=== PATIENT | male | born 1980 | race Caucasian/White ===

== ENCOUNTER 2017-01-22 17:56 | Emergency (ER) | payer OTHER ==
[2017-01-22] MEDS ORDERED: LIDOCAINE 1% 10 ML VIAL INJ ONE (18:02)
[2017-01-22] MEDS ORDERED: CHLORHEXIDINE GLUCONATE 4 % 15 ML UD TOP ONE (18:08)
[2017-01-22 18:10] VITALS: TEMP 98.5
[2017-01-22] MEDS ORDERED: HYDROcodone 10MG/APAP 325MG 1 EA TAB PO ONE (18:43)
--- NOTE | 2017-01-22 18:54 | ED.PDOC ---
History of Present Illness - General Chief Complaint: Bite: Animal/Insect/Human Stated Complaint: dog bite Time Seen by Provider: 01/22/17 18:51 Source: patient, RN notes reviewed, Vital Signs reviewed Exam Limitations: no limitations - History of Present Illness Initial Comments: Patient is a 36 y/o male who was trying to break up a dog fight and got bit on the right 3rd finger. He has a 3 cm longitudinal laceration on the dorsal side of his finger. The pain is moderate to severe. He is up to date on his tetanus shot. Timing/Duration: 1/2 hour Severity: moderate, severe Improving Factors: immobilization Worsening Factors: movement Associated Symptoms: denies symptoms Allergies/Adverse Reactions: Allergies NO KNOWN ALLERGY Allergy (Verified 01/22/17 18:08) Home Medications: Ambulatory Orders Acetaminophen W/ Codeine [Tylenol W/ CODEINE #3] 1 ea PO Q4H PRN #15 01/22/17 Ciprofloxacin [Cipro] 500 mg PO BID #14 tab 01/22/17 Clindamycin HCl 300 mg PO QID #28 cap 01/22/17 Review of Systems - Review of Systems Constitutional: States: no symptoms reported EENTM: States: no symptoms reported Respiratory: States: no symptoms reported Cardiology: States: no symptoms reported Gastrointestinal/Abdominal: States: no symptoms reported Genitourinary: States: no symptoms reported Musculoskeletal: States: joint pain, joint swelling Skin: States: lesions Endocrine: States: no symptoms reported Hematologic/Lymphatic: States: no symptoms reported All other Systems: Reviewed and Negative Past Medical History (General) - Patient Medical History Hx MRSA: Yes - back 2007; Arm 2008;Finger 2009 MRSA Source:: Wound Surgical History: no surgical history - Vaccination History Hx Tetanus, Diphtheria Vaccination: Yes - Social History Hx Tobacco Use: No Hx Alcohol Use: Yes - social Hx Substance Use: No Hx Substance Use Treatment: No Hx Depression: No - Activities of Daily Living Hospice Agency (if applicable):: None - Female History Patient is a Female of Child Bearing Age (10 -59 yrs old): No Patient : No Family Medical History - Family History Mother Family History: Unknown Physical Exam - Physical Exam General Appearance: Alert, Obvious distress, Well Groomed Ears, Nose, Throat: hearing grossly normal, normal ENT inspection Neck: full range of motion, supple, normal inspection Respiratory: no respiratory distress, no accessory muscle use Extremity: other - longitudinal laceration on 3rd right finger which starts just medial to the PIP joint. Through to subq. Laceration is 3 cm in length and 0.5 cm at the widest spot. Neurologic: no motor/sensory deficits, alert - f Skin Exam: other - see extremity exam Progress - Progress Progress: 01/22/17 19:01 Bit was steri-stripped because of location. I did not want to close the wound up. He will follow up with his PCP in 2 days or return to the ED for any worsening of symptoms. Since there are no pharmacies open in [facility], I will give him an ER dispense of hydrocodone/APAP #3 to take home. - EKG/XRAY/CT EKG: Fibrillation XRAY: Right fingers Xray Comments: No anthony involvement. Procedures - Laceration/Wound Repair Right Finger Wound Length (cm): 3 Wound's Depth, Shape: irregular Wound Explored: clean Irrigated w/ Saline (cc's): 50 - Patient's hand was soaked in [place] and water for 15 minutes. Anesthesia: 1% Lidocaine Volume Anesthetic (cc's): 4 Wound Repaired With: steri-strips Departure - Departure Clinical Impression: Dog bite ICD-10 Supporting Text: right 3rd finger, dorsal, 3 cm Time of Disposition: 19:02 Disposition: Discharge to Home or Self Care Condition: Fair Departure Forms: ED Discharge - Pt. Copy, Patient Portal Self Enrollment Instructions: DI for Animal Bites, DI for Dog Bite, Animal Bites Referrals: Alfredo Love MD [Primary Care Provider] - 1-2 Days Prescriptions: Ciprofloxacin [Cipro] 500 mg PO BID #14 tab Clindamycin HCl 300 mg PO QID #28 cap Acetaminophen W/ Codeine [Tylenol W/ CODEINE #3] 1 ea PO Q4H PRN #15 PRN Reason: Pain Home Medications: Ambulatory Orders Acetaminophen W/ Codeine [Tylenol W/ CODEINE #3] 1 ea PO Q4H PRN #15 01/22/17 Ciprofloxacin [Cipro] 500 mg PO BID #14 tab 01/22/17 Clindamycin HCl 300 mg PO QID #28 cap 01/22/17 Additional Instructions: Follow up for any severe pain not controlled with pain medication or signs or symptoms of infection.
--- NOTE | 2017-01-22 18:55 | RAD ---
EXAM DESCRIPTION: Fingers,Right CLINICAL HISTORY: 36 years, Male, dog bite, pain, swelling COMPARISON: None. FINDINGS: Three views the RIGHT third digit were performed. Soft tissue swelling involves the RIGHT third proximal interphalangeal joint. Findings are greatest posteriorly and are associated with some soft tissue gas consistent with the given history of dog bite. No radiopaque foreign body is identified. Bone mineralization is within normal limits. No fracture. Bony alignment is maintained. IMPRESSION: RIGHT third digit soft tissue injury consistent with the given history of dog bite. No radiopaque foreign body or underlying bony injury. Electronically signed by: Telma Noyola MD 01/22/2017 6:55 PM CDT
[2017-01-22] MEDS ORDERED: HYDROCOD/APAP 10/325 (ER DISP) # 3 tablets PO ONE (19:08)
[2017-01-22] MEDS ORDERED: CIPROFLOXACIN 500 MG TAB PO ONE (19:09)
[2017-01-22] MEDS ORDERED: CLINDAMYCIN HCL CAP 150 MG CAP PO ONE (19:09)
[2017-01-22] MEDS ORDERED: CLINDAMYCIN HCL CAP (ER DISP) 150 MG CAP PO ONE (19:10)
[2017-01-22 19:37] VITALS: BP 110/62; O2SAT 98
== END 2017-01-22 19:36 | disposition home or self-care (01) ==
LOC: ER 17:56
DX: S61.252A Open bite of right middle finger without damage to nail, initial encounter (principal); Z86.14 Personal history of Methicillin resistant Staphylococcus aureus infection; W54.0XXA Bitten by dog, initial encounter